=== PATIENT | female | born 1955 | race Caucasian/White ===

== ENCOUNTER → 2018-10-13 | Outpatient (CLI) | payer MEDICARE ==
[~2018-10-13] MED LIST: ALPR2TAB2 PO; RISP2TAB76 PO
== END | disposition home or self-care (01) ==
LOC: RAH 16:07
PROVIDERS: ATTEND Family Medicine
DX: M25.552 Pain in left hip (principal); M25.551 Pain in right hip
CPT/HCPCS: 73521

== ENCOUNTER 2020-05-11 14:37 | Inpatient (IN) | payer MEDICARE ==
[~2020-05-11] VITALS: Ht 165.1 cm; Wt 51.6 kg
[2020-05-11 15:46] LABS: APPEARANCE,URINE Clear (CLEAR); BILIRUBIN,URINE Negative (NEGATIVE); COLOR,URINE Dark Yellow (YELLOW); GLUCOSE, URINE (UA) Negative (NEGATIVE); KETONES,URINE >=80 mg/dL (NEGATIVE); LEUKOCYTE ESTERASE ,URINE Trace (NEGATIVE); NITRATE,URINE Positive (NEGATIVE); OCCULT BLOOD,URINE Moderate (NEGATIVE); PROTEIN,URINE POS 1+ mg/dL (NEGATIVE)
[2020-05-11 15:47] LABS: BASOPHILS % (AUTO) 0.4 % (0.0-5.0); EOSINOPHILS % (AUTO) 0.2 % (0.0-8.0); HEMATOCRIT 41.1 % (36-48); LYMPHOCYTES % (AUTO) 6.6 % (21.0-51.0); MEAN CORPUSCULAR HEMOGLOBIN 28.6 pg (27.0-33.0); MEAN CORPUSCULAR HGB CONC 33.1 g/dL (32.0-36.0); MEAN CORPUSCULAR VOLUME 86.3 fL (79-99); MONOCYTES % (AUTO) 4.4 % (3.0-13.0); PLATELET COUNT (AUTO) 548 K/uL (130-400); RED BLOOD CELL COUNT(AUTO) 4.76 MIL/uL (4.00-5.50); RED CELL DISTRIBUTION WIDTH 12.7 % (11.0-15.5); WHITE BLOOD COUNT (AUTO) 25.1 K/uL (4.8-10.8)
[2020-05-11 15:53] LABS: AMPHET/METH SCREEN,URINE NEGATIVE (NEGATIVE); BARBITURATE SCREEN, URINE NEGATIVE (NEGATIVE); BENZODIAZEPINES SCREEN,URINE NEGATIVE (NEGATIVE); CANNABINOID SCREEN,URINE POSITIVE (NEGATIVE); COCAINE SCREEN,URINE NEGATIVE (NEGATIVE); OPIATE SCREEN,URINE NEGATIVE (NEGATIVE); PHENCYCLIDINE SCREEN,URINE NEGATIVE (NEGATIVE)
[2020-05-11 15:55] LABS: CARBON DIOXIDE 24 mmol/L (21-32); CHLORIDE 95 mmol/L (101-111); CREATININE 1.3 mg/dL (0.5-1.5); GLOMERULAR FILTR. RATE CALC 44 mL/min (>60); GLUCOSE,RANDOM 159 mg/dL (70-105); POTASSIUM 3.5 mmol/L (3.5-5.1); SODIUM SERUM 135 mmol/L (136-145); UREA NITROGEN, BLOOD 22 mg/dL (7-18)
[2020-05-11 15:59] LABS: BACTERIA,URINE Many /HPF (None Seen)
[2020-05-11 16:00] LABS: MUCUS,URINE Few LPF (None Seen); SQUAMOUS EPITHELIAL CELL,UR 0-2 /HPF (0-2)
[2020-05-11 16:02] LABS: ALANINE AMINOTRANSFERASE 55 U/L (12-78); ALBUMIN 1.9 g/dL (3.5-5.0); ALCOHOL, BLOOD < 3 mg/dL (0-10); AMMONIA 27 umol/L (11-32); ASPARTATE AMINOTRANSFERASE 53 U/L (10-37); TOTAL PROTEIN, SERUM 7.4 g/dL (6.0-8.3)
[2020-05-11] MEDS ORDERED: AZITHROMYCIN 500MG+NS 250ML 250 ML IV ONE (16:28)
[2020-05-11] MEDS ORDERED: CEFTRIAXONE SODIUM 1 GM ONE (16:29)
[2020-05-11] MEDS: AZITHROMYCIN 500MG+NS 250ML 250 ML IV SCH (18:30)
[2020-05-11] MEDS: FUROSEMIDE 10 MG/ML 4ML VIAL IV SCH (18:30)
[2020-05-11] MEDS ORDERED: ONDANSETRON HCL 4 MG/2 ML VIAL IVP PRN (18:30)
[2020-05-11] MEDS ORDERED: HYDRALAZINE HCL 20 MG/ML VIAL IV PRN (18:30)
[2020-05-11] MEDS ORDERED: LACTULOSE 20 GM/30 ML UDCUP PO PRN (18:30)
[2020-05-11] MEDS ORDERED: LOPERAMIDE HCL 2 MG CAP PO PRN (18:30)
[2020-05-11 18:33] VITALS: BP 94/61
--- NOTE | 2020-05-11 18:42 | NUR ---
Received pt via stretcher from ER. Pt A+Ox2. pt resting in bed comfortably. pt states she has no medical problems and does not take any medications at home. V/s taken and stable. no complaints offered. Will cont to monitor
[2020-05-11 19:00] VITALS: BP 94/63
--- NOTE | 2020-05-11 20:30 | NUR ---
ESTELA RETURNED PAGE [facility] FROM [facility] ORDERED FOR PT TO BE ON 2L NC, CONT PULSE OXIMETER, TELEMETRY MONITORING AND CXR IN THE AM. PT CURRENTLY NOT IN ANY RESP DISTRESS.
--- NOTE | 2020-05-11 21:00 | NUR ---
NOTE PT ON TELE AND CONT PULSE OX. NO RESP DISTRESS. WILL CONT TO MONITOR.
[2020-05-11] MEDS: ENOXAPARIN SODIUM 30 MG/0.3 ML SQ SCH (21:22)
--- NOTE | 2020-05-11 21:53 | NUR ---
[facility] ROUNDS ERIN Daugherty ROUNDED TO SEE THE PT IN ROOM 406. STATED THAT IF THE PT WAS ON CONT TELE AND PULSE OX THE PT MAY STAY ON THE FLOOR. TO MONITOR CLOSELY FOR ANY RESP DISTRESS. IF RESP DISTRESS OCCURS TO TRANSFER PT TO PCCU FOR POSS CHEST TUBE.
[2020-05-12] VITALS (7 sets, daily range): BP systolic 99–129; BP diastolic 65–82
[2020-05-12] MEDS: SODIUM CHLORIDE 0.9% 1000ML 1,000 ML IV SCH ×2 (04:30→15:11)
[2020-05-12 04:41] LABS: ABG BASE EXCESS 2.6 mmol/L (-2.0-3.0); ABG HCO3 22.6 mmol/L (21.0-28.0); ABG OXYGEN SATURATION 99.1 % (95.0-99.0); ABG PCO2 24 mmHg (32-45)
[2020-05-12 04:51] LABS: BASOPHILS % (AUTO) 0.4 % (0.0-5.0); EOSINOPHILS % (AUTO) 0.3 % (0.0-8.0); LYMPHOCYTES % (AUTO) 7.5 % (21.0-51.0); MEAN CORPUSCULAR HEMOGLOBIN 28.7 pg (27.0-33.0); MEAN CORPUSCULAR HGB CONC 33.4 g/dL (32.0-36.0); MONOCYTES % (AUTO) 3.8 % (3.0-13.0); NEUTROPHILS % (AUTO) 87.4 % (40.0-77.0); PLATELET COUNT (AUTO) 358 K/uL (130-400); RED BLOOD CELL COUNT(AUTO) 4.07 MIL/uL (4.00-5.50); RED CELL DISTRIBUTION WIDTH 12.8 % (11.0-15.5); WHITE BLOOD COUNT (AUTO) 18.3 K/uL (4.8-10.8)
[2020-05-12 05:07] LABS: ALBUMIN 1.3 g/dL (3.5-5.0); BILIRUBIN,DIRECT 0.2 mg/dL (0.0-0.3); BILIRUBIN,TOTAL 0.5 mg/dL (0.2-1.0); CREATININE 0.6 mg/dL (0.5-1.5); CRP QUANTITATIVE 145.7 mg/L (0.00-9.0); MAGNESIUM 2.6 mg/dL (1.80-2.40); PHOSPHORUS 2.1 mg/dL (2.5-4.9); POTASSIUM 3.4 mmol/L (3.5-5.1); TOTAL PROTEIN, SERUM 5.9 g/dL (6.0-8.3)
[2020-05-12 05:08] LABS: B-TYPE NATRIURETIC PEPTIDE 199 pg/mL (0-100)
[2020-05-12] MEDS: FUROSEMIDE 10 MG/ML 4ML VIAL IV SCH ×2 (06:00→20:35)
--- NOTE | 2020-05-12 06:54 | NUR ---
NOTE PT HEART RATE IN THE 120-124 AT THIS TIME. NO SOB NOTED. HR IN THE 80'S THROUGHOUT THE NIGHT.
[2020-05-12] MEDS: DEXAMETHASONE SOD PHOSPHATE 4 MG/ML 1ML VIAL IVP SCH (09:00)
[2020-05-12] MEDS: ENOXAPARIN SODIUM 30 MG/0.3 ML SQ SCH ×2 (09:00→20:36)
[2020-05-12] MEDS: FAMOTIDINE 20MG TAB 20 MG TAB PO SCH (09:00)
[2020-05-12] MEDS: CEFTRIAXONE SODIUM 1 GM IV SCH (09:00)
--- NOTE | 2020-05-12 14:12 | NUR ---
CHART CHECK COMPLETED. Pt IS A 64 Y.O. FEMALE ADMITTED SECONDARY TO [facility] COVID 19. Pt HAS A PAST MEDICAL HISTORY SIGNIFICANT FOR UTI, LEUKOCYTOSIS, BIPOLAR DISORDER, GERD, C-SPINE PROBLEMS, FIBROMYALGIA, POLY-SUBSTANCE ABUSE. Pt CURRENTLY ON REGULAR TEXTURE,THIN LIQUID DIET (HEART HEALTHY). PLEASE REQUEST FORMAL SKILLED SPEECH/SWALLOW EVALUATION IF Pt PRESENTS WITH +S/S OF ASPIRATION SUCH COUGH RESPONSE, THROAT CLEAR, OR WET VOCAL QUALITY DURING P.O. Addendum: 05/12/20 at 1413 by SIMRAN WOLFF, SPT ST Amended: Links added.
--- NOTE | 2020-05-12 18:11 | NUR ---
DCP CM called pt's room no answer. Called caregiver on facesheet, spoke to Torin Pastor , discussed dc plans. Pt is mostly independent prior to admission, lives at home alone. Has a provider 3hrs/day, rollator walker, 4 prong cane, shower chair. Denies any other equipments/services. Feels safe to go back home, provider able to assist with transportation and needs as necessary. Pt uses [facility] on [address] for meds. DC plan to home once stable. CM to cont to follow up. Addendum: 05/12/20 at 1814 by MERARI RODRIGUEZ LVN CM Amended: Links added.
[2020-05-12] MEDS: AZITHROMYCIN 500MG+NS 250ML 250 ML IV SCH (20:35)
[2020-05-13] VITALS (7 sets, daily range): BP systolic 101–124; BP diastolic 55–76
[2020-05-13] MEDS: ACETAMINOPHEN 325 MG TAB PO PRN ×2 (00:04→20:29)
[2020-05-13 04:33] LABS: BASOPHILS % (AUTO) 0.4 % (0.0-5.0); EOSINOPHILS % (AUTO) 0.2 % (0.0-8.0); HEMATOCRIT 32.1 % (36-48); LYMPHOCYTES % (AUTO) 4.5 % (21.0-51.0); MEAN CORPUSCULAR HEMOGLOBIN 28.7 pg (27.0-33.0); MEAN CORPUSCULAR HGB CONC 33.6 g/dL (32.0-36.0); MEAN CORPUSCULAR VOLUME 85.4 fL (79-99); NEUTROPHILS % (AUTO) 89.8 % (40.0-77.0); PLATELET COUNT (AUTO) 312 K/uL (130-400); RED BLOOD CELL COUNT(AUTO) 3.76 MIL/uL (4.00-5.50); RED CELL DISTRIBUTION WIDTH 12.6 % (11.0-15.5); WHITE BLOOD COUNT (AUTO) 21.8 K/uL (4.8-10.8)
[2020-05-13 04:56] LABS: ALBUMIN 1.2 g/dL (3.5-5.0); BILIRUBIN,TOTAL 0.3 mg/dL (0.2-1.0); CREATININE 0.7 mg/dL (0.5-1.5); MAGNESIUM 1.7 mg/dL (1.80-2.40); PHOSPHORUS 1.9 mg/dL (2.5-4.9); TOTAL PROTEIN, SERUM 5.5 g/dL (6.0-8.3)
[2020-05-13 05:04] LABS: POTASSIUM 2.6 mmol/L (3.5-5.1)
--- NOTE | 2020-05-13 05:31 | NUR ---
CRITICAL LAB VALUE [facility] PAGED FOR CRITICAL POTASSIUM: 2.6, NO CALL BACK AT THIS TIME. WILL RE-PAGE IN 10 MINUTES
[2020-05-13] MEDS: FUROSEMIDE 10 MG/ML 4ML VIAL IV SCH ×2 (06:13→14:38)
[2020-05-13] MEDS: FAMOTIDINE 20MG TAB 20 MG TAB PO SCH (08:34)
[2020-05-13] MEDS: DEXAMETHASONE SOD PHOSPHATE 4 MG/ML 1ML VIAL IVP SCH (08:34)
[2020-05-13] MEDS: CEFTRIAXONE SODIUM 1 GM IV SCH (08:34)
[2020-05-13] MEDS: ENOXAPARIN SODIUM 30 MG/0.3 ML SQ SCH ×2 (08:35→20:10)
[2020-05-13] MEDS: POTASSIUM CHLORIDE 20MEQ/100ML 100 ML IV PRN ×2 (10:29→14:45)
[2020-05-13] MEDS: LIDOCAINE HCL-MPF 1% 2ML VIAL IV PRN ×2 (10:30→14:48)
[2020-05-13] MEDS: SODIUM CHLORIDE 0.9% 1000ML 1,000 ML IV SCH ×2 (10:58→20:10)
[2020-05-13] MEDS: FOLIC ACID 1 MG TABLET PO SCH (12:40)
[2020-05-13] MEDS: THIAMINE HCL 100 MG TABLET PO SCH (12:40)
--- NOTE | 2020-05-13 15:33 | NUR ---
CM Note: [facility] pending pt to agree CM spoke to pt discussed Dr Valerio's recs for [facility], pt at this time undecided, prefers to go home, but wants time to think about it, will call CM once decision made. Informed pt CM will follow up on pt again. CM to cont to follow up.
[2020-05-13] MEDS: AZITHROMYCIN 500MG+NS 250ML 250 ML IV SCH (17:50)
[2020-05-13] MEDS: POTASSIUM CHLORIDE 10% ELIXIR 20 MEQ/15 ML UDCUP PO PRN ×2 (18:43→20:29)
[2020-05-14 03:42] VITALS: BP 112/57
[2020-05-14] MEDS: FUROSEMIDE 10 MG/ML 4ML VIAL IV SCH ×2 (06:19→18:09)
[2020-05-14] MEDS: POTASSIUM CHLORIDE 10% ELIXIR 20 MEQ/15 ML UDCUP PO PRN (06:30)
[2020-05-14] MEDS: SODIUM CHLORIDE 0.9% 1000ML 1,000 ML IV SCH ×2 (06:31→18:09)
[2020-05-14 07:33] VITALS: BP 108/67
[2020-05-14 08:51] LABS: BASOPHILS % (AUTO) 0.4 % (0.0-5.0); EOSINOPHILS % (AUTO) 0.3 % (0.0-8.0); HEMATOCRIT 39.2 % (36-48); LYMPHOCYTES % (AUTO) 4.2 % (21.0-51.0); MEAN CORPUSCULAR HEMOGLOBIN 28.8 pg (27.0-33.0); MEAN CORPUSCULAR HGB CONC 33.2 g/dL (32.0-36.0); MEAN CORPUSCULAR VOLUME 86.7 fL (79-99); MONOCYTES % (AUTO) 2.6 % (3.0-13.0); NEUTROPHILS % (AUTO) 90.9 % (40.0-77.0); PLATELET COUNT (AUTO) 390 K/uL (130-400); RED BLOOD CELL COUNT(AUTO) 4.52 MIL/uL (4.00-5.50); RED CELL DISTRIBUTION WIDTH 12.9 % (11.0-15.5)
[2020-05-14 09:13] LABS: ALBUMIN 1.3 g/dL (3.5-5.0); BILIRUBIN,TOTAL 0.3 mg/dL (0.2-1.0); CREATININE 0.8 mg/dL (0.5-1.5); MAGNESIUM 1.8 mg/dL (1.80-2.40); POTASSIUM 3.8 mmol/L (3.5-5.1); TOTAL PROTEIN, SERUM 6.1 g/dL (6.0-8.3)
[2020-05-14] MEDS: FAMOTIDINE 20MG TAB 20 MG TAB PO SCH (09:24)
[2020-05-14] MEDS: THIAMINE HCL 100 MG TABLET PO SCH (09:24)
[2020-05-14] MEDS: FOLIC ACID 1 MG TABLET PO SCH (09:24)
[2020-05-14] MEDS: CEFTRIAXONE SODIUM 1 GM IV SCH (09:25)
[2020-05-14] MEDS: DEXAMETHASONE SOD PHOSPHATE 4 MG/ML 1ML VIAL IVP SCH (09:25)
[2020-05-14] MEDS: ENOXAPARIN SODIUM 30 MG/0.3 ML SQ SCH ×2 (09:25→20:56)
[2020-05-14] MEDS: AZITHROMYCIN 500MG+NS 250ML 250 ML IV SCH (09:25)
[2020-05-14 11:28] VITALS: BP 143/55
--- NOTE | 2020-05-14 15:30 | NUR ---
ASSUMED CARE OF PATIENT, RESTING QUIETLY IN BED.
[2020-05-14] MEDS: ACETAMINOPHEN 325 MG TAB PO PRN (15:56)
[2020-05-14 16:17] VITALS: BP 124/70
--- NOTE | 2020-05-14 18:43 | NUR ---
COMPLAINTS OF LOOSE/SOFT STOOLS WANTED SOMETHING FOR HER STOMACH. IMODIUM GIVEN
[2020-05-14 20:47] VITALS: BP 107/70
[2020-05-14] MEDS: MORPHINE SULFATE 2 MG/ML 1ML SYG IV PRN (20:57)
[2020-05-14 23:55] VITALS: BP 116/65
[2020-05-15] VITALS (19 sets, daily range): BP systolic 87–147; BP diastolic 55–90
[2020-05-15] MEDS: SODIUM CHLORIDE 0.9% 1000ML 1,000 ML IV SCH ×3 (02:14→22:00)
[2020-05-15] MEDS: MORPHINE SULFATE 2 MG/ML 1ML SYG IV PRN (05:59)
[2020-05-15] MEDS: FUROSEMIDE 10 MG/ML 4ML VIAL IV SCH ×2 (05:59→17:54)
[2020-05-15] MEDS: ENOXAPARIN SODIUM 30 MG/0.3 ML SQ SCH ×2 (08:08→20:53)
[2020-05-15] MEDS: CEFTRIAXONE SODIUM 1 GM IV SCH (08:08)
[2020-05-15] MEDS: FAMOTIDINE 20MG TAB 20 MG TAB PO SCH (08:08)
--- NOTE | 2020-05-15 09:20 | NUR ---
DR. CARLITOS BRO WAS CALLED . UPDATE CONSULTATION ORDER FROM 05/14/2020 UPDATE TODAY CARE PLAN.WILL PLACE IN HIS CENSUS .
[2020-05-15] MEDS: THIAMINE HCL 100 MG TABLET PO SCH (11:45)
[2020-05-15] MEDS: FOLIC ACID 1 MG TABLET PO SCH (11:45)
[2020-05-15] MEDS ORDERED: SUCCINYLCHOLINE CHLORIDE 20 MG/ML 10 ML VIAL ONE (11:59)
[2020-05-15 13:16] LABS: INR 1.01 (0.85-1.15); PROTHROMBIN TIME 10.9 SEC (9.6-11.6)
[2020-05-15] MEDS ORDERED: PROPOFOL 10 MG/ML 20ML VIAL IV ONE (13:19)
[2020-05-15] MEDS ORDERED: LIDOCAINE PF 2% 5ML ABBOJECT ONE (13:20)
[2020-05-15] MEDS ORDERED: ROCURONIUM 10MG/1ML SYR 10 MG/ML ML ONE (13:23)
[2020-05-15] MEDS ORDERED: FENTANYL CITRATE PF 50 MCG/1 ML 2ML VIAL ONE (13:27)
[2020-05-15] MEDS ORDERED: MIDAZOLAM HCL 1 MG/ML 2ML VIAL ONE (13:27)
--- NOTE | 2020-05-15 13:40 | NUR ---
TO GI LAB FOR THE BRONOSCOPY PROCEDURE. CONSENT REVIEWED
[2020-05-15] MEDS ORDERED: ESMOLOL HCL 10 MG/ML 10 ML VIAL ONE ×2 (14:37→15:06)
[2020-05-15] MEDS ORDERED: METOPROLOL TARTRATE 1 MG/ML 5ML VIAL IV ONE (15:27)
[2020-05-15] MEDS ORDERED: HYDRALAZINE HCL 20 MG/ML VIAL IV SCH (16:00)
[2020-05-15] MEDS: AZITHROMYCIN 500MG+NS 250ML 250 ML IV SCH (18:05)
[2020-05-16] VITALS (17 sets, daily range): BP systolic 100–140; BP diastolic 62–86
[2020-05-16 03:39] LABS: BASOPHILS % (AUTO) 0.4 % (0.0-5.0); EOSINOPHILS % (AUTO) 0.2 % (0.0-8.0); HEMATOCRIT 32.4 % (36-48); LYMPHOCYTES % (AUTO) 6.9 % (21.0-51.0); MEAN CORPUSCULAR HEMOGLOBIN 28.4 pg (27.0-33.0); MEAN CORPUSCULAR HGB CONC 33.3 g/dL (32.0-36.0); MEAN CORPUSCULAR VOLUME 85.3 fL (79-99); MONOCYTES % (AUTO) 5.4 % (3.0-13.0); NEUTROPHILS % (AUTO) 86.1 % (40.0-77.0); PLATELET COUNT (AUTO) 314 K/uL (130-400); RED CELL DISTRIBUTION WIDTH 13.2 % (11.0-15.5); WHITE BLOOD COUNT (AUTO) 22.8 K/uL (4.8-10.8)
[2020-05-16 03:54] LABS: ALBUMIN 1.1 g/dL (3.5-5.0); BILIRUBIN,TOTAL 0.2 mg/dL (0.2-1.0); CREATININE 0.6 mg/dL (0.5-1.5); MAGNESIUM 2.3 mg/dL (1.80-2.40); PHOSPHORUS 2.4 mg/dL (2.5-4.9); TOTAL PROTEIN, SERUM 4.9 g/dL (6.0-8.3)
[2020-05-16 04:11] LABS: POTASSIUM 2.8 mmol/L (3.5-5.1)
[2020-05-16] MEDS: FUROSEMIDE 10 MG/ML 4ML VIAL IV SCH ×2 (05:56→18:21)
[2020-05-16] MEDS: POTASSIUM CHLORIDE 20MEQ/100ML 100 ML IV PRN (05:56)
[2020-05-16] MEDS: SODIUM CHLORIDE 0.9% 1000ML 1,000 ML IV SCH ×2 (08:04→22:23)
[2020-05-16] MEDS: CEFTRIAXONE SODIUM 1 GM IV SCH (08:20)
[2020-05-16] MEDS: ENOXAPARIN SODIUM 30 MG/0.3 ML SQ SCH (08:20)
[2020-05-16] MEDS: FAMOTIDINE 20MG TAB 20 MG TAB PO SCH (08:21)
[2020-05-16] MEDS: THIAMINE HCL 100 MG TABLET PO SCH (11:34)
[2020-05-16] MEDS: FOLIC ACID 1 MG TABLET PO SCH (11:34)
--- NOTE | 2020-05-16 15:52 | NUR ---
Spoke to radiology pt will go for thoracentesis tomorrow. Hold lovenox dose on 05/17.
--- NOTE | 2020-05-16 17:05 | NUR ---
pt transported to 4th floor with RN in stable condition.
--- NOTE | 2020-05-16 17:20 | NUR ---
PT ARRIVED FROM 1B ICU, ALERT AND ORIENTED
[2020-05-16] MEDS: AZITHROMYCIN 500MG+NS 250ML 250 ML IV SCH (18:27)
[2020-05-17] VITALS (12 sets, daily range): BP systolic 116–140; BP diastolic 67–84
[2020-05-17] MEDS: SODIUM CHLORIDE 0.9% 1000ML 1,000 ML IV SCH ×3 (04:35→22:08)
[2020-05-17] MEDS: FUROSEMIDE 10 MG/ML 4ML VIAL IV SCH ×2 (04:44→18:53)
[2020-05-17 05:31] LABS: BASOPHILS % (AUTO) 0.5 % (0.0-5.0); EOSINOPHILS % (AUTO) 0.1 % (0.0-8.0); HEMATOCRIT 37.2 % (36-48); LYMPHOCYTES % (AUTO) 8.8 % (21.0-51.0); MEAN CORPUSCULAR HEMOGLOBIN 28.3 pg (27.0-33.0); MEAN CORPUSCULAR HGB CONC 32.8 g/dL (32.0-36.0); MEAN CORPUSCULAR VOLUME 86.3 fL (79-99); MONOCYTES % (AUTO) 5.7 % (3.0-13.0); NEUTROPHILS % (AUTO) 82.8 % (40.0-77.0); PLATELET COUNT (AUTO) 352 K/uL (130-400); RED BLOOD CELL COUNT(AUTO) 4.31 MIL/uL (4.00-5.50); RED CELL DISTRIBUTION WIDTH 13.2 % (11.0-15.5); WHITE BLOOD COUNT (AUTO) 19.7 K/uL (4.8-10.8)
[2020-05-17 05:51] LABS: ALBUMIN 1.3 g/dL (3.5-5.0); BILIRUBIN,TOTAL 0.5 mg/dL (0.2-1.0); CREATININE 0.8 mg/dL (0.5-1.5); MAGNESIUM 1.7 mg/dL (1.80-2.40); PHOSPHORUS 2.3 mg/dL (2.5-4.9); TOTAL PROTEIN, SERUM 6.2 g/dL (6.0-8.3)
[2020-05-17 06:00] LABS: POTASSIUM 2.6 mmol/L (3.5-5.1)
[2020-05-17] MEDS: POTASSIUM CHLORIDE 20MEQ/100ML 100 ML IV PRN (06:12)
[2020-05-17] MEDS: CEFTRIAXONE SODIUM 1 GM IV SCH (08:08)
[2020-05-17] MEDS: POTASSIUM CHLORIDE 20 MEQ ERTAB PO PRN ×2 (08:15→15:23)
--- NOTE | 2020-05-17 09:30 | NUR ---
PATIENT TESTED FOR COVID 05/11/20 COVID-19 PCR NEGATIVE Addendum: 05/17/20 at 1021 by TREY FELIX RN RN Amended: Links added.
[2020-05-17] MEDS ORDERED: LIDOCAINE HCL-MPF 1% 2ML VIAL IV PRN (11:00)
[2020-05-17] MEDS ORDERED: POTASSIUM CHLORIDE 20MEQ/100ML 100 ML IV PRN (11:00)
--- NOTE | 2020-05-17 11:32 | NUR ---
U/S GD RT THORACENTESIS PROCEDURE PERFORMED BY DR Anibal DIANE. PUNCTURE SITE RT LUNG. TOTAL REMOVED 900ML OF PURULENT YELLOW FLUID. END OF PROCEDURE AT 1000. PATIENT TOLERATED PROCEDURE WELL. POST CHEST X-RAY TAKEN AND PENDING RESULTS. PATIENT TRANSPORTED TO [facility] VIA BED. REPORT GIVEN TO Adri HAYNES RN. NO C/O DISCOMFORT UPON TRANSFER.
[2020-05-17 11:40] LABS: CHOLESTEROL,BODY FLUID < 50 mg/dL
[2020-05-17 15:07] LABS: APPEARANCE BODY FLUID TURBID (CLEAR); SPECIMENTYPE,BODY FLUID PLEURAL
[2020-05-17 15:08] LABS: COLOR,BODY FLUID OTHER (LT YELLOW); TOTAL VOLUME,BODY FLUID 900 mL
[2020-05-17 15:09] LABS: BODY FLUID WBC 66000 /cu. mm.
[2020-05-17 15:12] LABS: BODY FLUID RBC 500 /cu. mm.
[2020-05-17] MEDS: THIAMINE HCL 100 MG TABLET PO SCH (15:23)
[2020-05-17] MEDS: FOLIC ACID 1 MG TABLET PO SCH (15:23)
[2020-05-17] MEDS: FAMOTIDINE 20MG TAB 20 MG TAB PO SCH (15:23)
[2020-05-17] MEDS: AZITHROMYCIN 500MG+NS 250ML 250 ML IV SCH (18:51)
[2020-05-18] VITALS (7 sets, daily range): BP systolic 110–149; BP diastolic 58–90
[2020-05-18] MEDS: FUROSEMIDE 10 MG/ML 4ML VIAL IV SCH ×2 (05:43→17:03)
--- NOTE | 2020-05-18 08:31 | NUR ---
Patient is s/p right Thoracentesis 05/17/2020.Will continue Physical Therapy treatment plan as tolerated, OOB to chair x 1 person assist and ROM strengthening exercises to LE's . Addendum: 05/18/20 at 0833 by JAMARI PUGA, PT PT Amended: Links added.
[2020-05-18 08:40] LABS: BASOPHILS % (AUTO) 0.7 % (0.0-5.0); EOSINOPHILS % (AUTO) 0.1 % (0.0-8.0); HEMATOCRIT 37.6 % (36-48); LYMPHOCYTES % (AUTO) 7.5 % (21.0-51.0); MEAN CORPUSCULAR HEMOGLOBIN 28.3 pg (27.0-33.0); MEAN CORPUSCULAR HGB CONC 33.2 g/dL (32.0-36.0); MEAN CORPUSCULAR VOLUME 85.3 fL (79-99); MONOCYTES % (AUTO) 4.3 % (3.0-13.0); NEUTROPHILS % (AUTO) 86.3 % (40.0-77.0); PLATELET COUNT (AUTO) 333 K/uL (130-400); RED BLOOD CELL COUNT(AUTO) 4.41 MIL/uL (4.00-5.50); RED CELL DISTRIBUTION WIDTH 13.2 % (11.0-15.5)
[2020-05-18 09:06] LABS: CREATININE 0.8 mg/dL (0.5-1.5); POTASSIUM 3.5 mmol/L (3.5-5.1)
[2020-05-18] MEDS: CEFTRIAXONE SODIUM 1 GM IV SCH (10:03)
[2020-05-18] MEDS: FAMOTIDINE 20MG TAB 20 MG TAB PO SCH (10:04)
[2020-05-18] MEDS: POTASSIUM CHLORIDE 20 MEQ ERTAB PO PRN ×2 (10:04→14:16)
[2020-05-18] MEDS: THIAMINE HCL 100 MG TABLET PO SCH (10:05)
[2020-05-18] MEDS: FOLIC ACID 1 MG TABLET PO SCH (10:05)
[2020-05-18] MEDS: SODIUM CHLORIDE 0.9% 1000ML 1,000 ML IV SCH ×2 (10:08→21:24)
--- NOTE | 2020-05-18 11:43 | NUR ---
RDSCREEN - LOS X 7 Pt admitted with CAD. Regular diet order in place. Poor appetite. Fair PO intake at 50%. No report of GI distress. WBC 18.0, P 2.3, Mg 1.70, Alb 1.3. Thiamine, Folic acid in place. Pt with history of polysubstance abuse. BMI 19.0, low BMI for age. S/p thoracentesis, Biopsy, bronchoscopy. Pending results. Pending possible lobectomy. Recommend Daily Multivitamin Recommend 60mL ProMod BID Recommend Ensure BID RD to continue to monitor. Please notify RD as additional nutrition concerns arise. Thank you. Addendum: 05/18/20 at [address] Amended: Links added.
--- NOTE | 2020-05-18 16:34 | NUR ---
CALLED LAB TO FOLLOW UP WITH PATHOLOGY RESULTS ON THORACENTESIS AND BRONCHOSCOPY, RESULTS NOT FINALIZED
[2020-05-19 04:25] VITALS: BP 140/74
[2020-05-19] MEDS: FUROSEMIDE 10 MG/ML 4ML VIAL IV SCH ×2 (06:30→18:01)
[2020-05-19] MEDS: SODIUM CHLORIDE 0.9% 1000ML 1,000 ML IV SCH ×2 (06:50→17:07)
[2020-05-19 07:43] VITALS: BP 136/85
[2020-05-19 08:27] LABS: BASOPHILS % (AUTO) 0.6 % (0.0-5.0); HEMATOCRIT 37.1 % (36-48); LYMPHOCYTES % (AUTO) 7.8 % (21.0-51.0); MEAN CORPUSCULAR HEMOGLOBIN 28.2 pg (27.0-33.0); MEAN CORPUSCULAR HGB CONC 32.9 g/dL (32.0-36.0); MEAN CORPUSCULAR VOLUME 85.7 fL (79-99); MONOCYTES % (AUTO) 5.5 % (3.0-13.0); NEUTROPHILS % (AUTO) 84.7 % (40.0-77.0); PLATELET COUNT (AUTO) 368 K/uL (130-400); RED BLOOD CELL COUNT(AUTO) 4.33 MIL/uL (4.00-5.50); RED CELL DISTRIBUTION WIDTH 13.2 % (11.0-15.5); WHITE BLOOD COUNT (AUTO) 25.8 K/uL (4.8-10.8)
[2020-05-19 08:43] LABS: CREATININE 0.7 mg/dL (0.5-1.5); POTASSIUM 3.4 mmol/L (3.5-5.1)
[2020-05-19] MEDS: CEFTRIAXONE SODIUM 1 GM IV SCH (08:54)
[2020-05-19] MEDS: FAMOTIDINE 20MG TAB 20 MG TAB PO SCH (08:54)
[2020-05-19] MEDS: FOLIC ACID 1 MG TABLET PO SCH (08:54)
[2020-05-19] MEDS: THIAMINE HCL 100 MG TABLET PO SCH (08:54)
[2020-05-19 11:00] VITALS: BP 162/93
[2020-05-19] MEDS: POTASSIUM CHLORIDE 20 MEQ ERTAB PO PRN ×2 (12:11→14:53)
--- NOTE | 2020-05-19 13:46 | NUR ---
SPOKE WITH PAULINA FROM DR. JEAN OFFICE, MADE AWARE OF CONSULT, TANIA ROBLES, PENDING CALL BACK
--- NOTE | 2020-05-19 13:56 | NUR ---
SPOKE WITH DR. JEAN MADE AWARE OF NEW CONSULT, STATED HE WILL SEE PATIENT IN CLINIC ONCE SHE IS DISCHARGED AND INFECTION IS CLEARED
--- NOTE | 2020-05-19 15:30 | NUR ---
NOTED PATIENT WITH PULSE OF 120, PATIENT NOT ON TELE, BP STABLE. NEREIDA BRAY MADE AWARE NEW ORDER TELE MONITORING
[2020-05-19 16:00] VITALS: BP 126/78
--- NOTE | 2020-05-19 17:00 | NUR ---
PATIENT ON TELE MONITORING SUSTAINING ST 120S, ASYMPTOMATIC. SPOKE WITH NEREIDA BRAY NP NEW ORDER CARVEDILOL 6.25MG PO BID
--- NOTE | 2020-05-19 17:16 | NUR ---
DR. KIP BAEZA, REVIEWED CT CHEST AND CYTOLOGY REPORTS, PENDING REPORT FROM THORACENTESIS. NEW ORDER CONSULT CASE MANAGEMENT FOR LEGAL NEXT OF KIN
[2020-05-19 20:09] VITALS: BP 142/86
[2020-05-19] MEDS: CARVEDILOL 6.25 MG TABLET PO SCH (21:53)
[2020-05-19 23:28] VITALS: BP 99/97
[2020-05-20 04:00] VITALS: BP 105/68
[2020-05-20] MEDS: FUROSEMIDE 10 MG/ML 4ML VIAL IV SCH ×2 (06:38→18:21)
[2020-05-20] MEDS: POTASSIUM CHLORIDE 10% ELIXIR 20 MEQ/15 ML UDCUP PO PRN ×2 (06:41→09:58)
[2020-05-20 08:00] VITALS: BP 109/72
[2020-05-20] MEDS: CEFTRIAXONE SODIUM 1 GM IV SCH (09:58)
[2020-05-20] MEDS: CARVEDILOL 6.25 MG TABLET PO SCH ×2 (09:59→20:31)
[2020-05-20] MEDS: SODIUM CHLORIDE 0.9% 1000ML 1,000 ML IV SCH ×3 (10:00→22:17)
[2020-05-20] MEDS: FAMOTIDINE 20MG TAB 20 MG TAB PO SCH (10:00)
--- NOTE | 2020-05-20 10:25 | NUR ---
SS Prompt: Assistance with Legal Next of Kin ADAN contacted PCP office of Dr. Leonard Isaac and inquired about next of kin per records; This worker informed no one listed. ADAN contacted Caregiver Torin Pastor [phone] and per Ms. Pastor, pt. never , parents and she has no children. Ms. Pastor stated that she was contacted by floor nurse yesterday with the same inquiries and provided her with pt's only Brother: Miguel Freitas [phone]. ADAN telephoned pt's brother, no answer; left voicemail to contact this worker. ADAN contacted pt's primary nurse ALICIA Lyons and provided pt's brother's name and telephone number.
[2020-05-20 11:00] VITALS: BP 104/74
[2020-05-20] MEDS: FOLIC ACID 1 MG TABLET PO SCH (13:10)
[2020-05-20] MEDS: THIAMINE HCL 100 MG TABLET PO SCH (13:10)
--- NOTE | 2020-05-20 13:30 | NUR ---
Call back from pt's Brother Miguel Freitas, stating that pt. has no other siblings, no chlildren, no spouse. Pt's brother informed that physician's inquiring about next of kin, pt's brother confirmed he is the only living relative and provided two contact tel#s for himself so that physicians may contact him : Home: Pt's Brother stated that he would f/u with primary nurse on pt. condition. SW provided contact info to CM.
[2020-05-20 16:03] VITALS: BP 101/73
[2020-05-20 19:53] VITALS: BP 130/76
[2020-05-20] MEDS: POTASSIUM CHLORIDE 20 MEQ ERTAB PO PRN (20:30)
--- NOTE | 2020-05-20 22:50 | NUR ---
CRACKLES NOTED BILATERALLY. CONGESTION NOTED. PT ENCOURAGED TO COUGH AND REMOVE MUCUS. GIVEN ENSURE AND WATER. TOLERATED WELL.ATTEMPTING TO INCREASE NUTRITION LEVELS. GBW. SOB. IV FLUIDS IN PLACE.
[2020-05-20 23:40] VITALS: BP 102/66
[2020-05-21 03:40] VITALS: BP 160/91
[2020-05-21 05:16] LABS: BASOPHILS % (AUTO) 0.3 % (0.0-5.0); HEMATOCRIT 34.3 % (36-48); LYMPHOCYTES % (AUTO) 7.2 % (21.0-51.0); MEAN CORPUSCULAR HEMOGLOBIN 27.9 pg (27.0-33.0); MEAN CORPUSCULAR HGB CONC 32.7 g/dL (32.0-36.0); MEAN CORPUSCULAR VOLUME 85.5 fL (79-99); MONOCYTES % (AUTO) 5.9 % (3.0-13.0); NEUTROPHILS % (AUTO) 85.6 % (40.0-77.0); PLATELET COUNT (AUTO) 332 K/uL (130-400); RED BLOOD CELL COUNT(AUTO) 4.01 MIL/uL (4.00-5.50); RED CELL DISTRIBUTION WIDTH 13.2 % (11.0-15.5); WHITE BLOOD COUNT (AUTO) 20.2 K/uL (4.8-10.8)
[2020-05-21 05:37] LABS: CREATININE 0.6 mg/dL (0.5-1.5); MAGNESIUM 1.9 mg/dL (1.80-2.40); PHOSPHORUS 2.9 mg/dL (2.5-4.9); POTASSIUM 3.5 mmol/L (3.5-5.1)
[2020-05-21] MEDS: FUROSEMIDE 10 MG/ML 4ML VIAL IV SCH (06:05)
[2020-05-21] MEDS: SODIUM CHLORIDE 0.9% 1000ML 1,000 ML IV SCH (07:47)
[2020-05-21 08:56] VITALS: BP 134/87
[2020-05-21] MEDS: FOLIC ACID 1 MG TABLET PO SCH (08:56)
[2020-05-21] MEDS: CARVEDILOL 6.25 MG TABLET PO SCH (08:56)
[2020-05-21] MEDS: FAMOTIDINE 20MG TAB 20 MG TAB PO SCH (08:56)
[2020-05-21] MEDS: THIAMINE HCL 100 MG TABLET PO SCH (08:57)
[2020-05-21] MEDS: CEFTRIAXONE SODIUM 1 GM IV SCH (08:57)
--- NOTE | 2020-05-21 10:40 | NUR ---
JUNIOR ADMINISTRATIVE ASSISTANT CALL TO NOTIFY THAT PT HR WAS DECREASING AND IT WAS IN THE MID 30 B/MIN. IMMEDIATELY PT WAS ASSESS AND FOUND UNRESPONSIVE. CAROTID PULSE WAS VERY WEAK, CODE BLUE WAS CALL AND COMPRESSIONS AND VENTILATIONS STARTED AROUND 1043, FIRST EPI 1MG IV ADMINISTERED. AT 1049 PT IN ASYSTOLE , 1052 SB WITH HR 47. 1053 1 MG IV OF ATROPINE WAS ADMINISTERED. SANDY GARCIA AND FAMILY OF THE PT WAS CALL AND NOTIFY ABOUT THE SITUATION, FAMILY (BROTHER) MARIA FERNANDA OTOOLE WAS ASK ABOUT THE PT WISHES IN CASE OF EMERGENCY AND HE VERBALIZED THAT PT WILL NOT WANT TO BE INTUBATED OR RESUSCITATED, CHOLÉ FLESHING MACHINE OPERATOR WITNESS WITH ME VIA TELEPHONE AND WE SIGN DNR CONSENT. PT WAS MADE DNR BY 1054 AND BY 1055 PT .
== END 2020-05-21 10:55 | disposition expired | DRG 871 ==
LOC: EDH 14:37 → OBSVTOIN 16:43 → EDHIP 16:43 → 4BH 17:37 → 4DH 05-13 22:26 → DAHIP 05-15 16:36 → 4DH 05-16 16:33
PROVIDERS: ADMIT Internal Medicine Critical Care Medicine; ATTEND Internal Medicine Critical Care Medicine
PROC: 5A09357 Assistance with Respiratory Ventilation, Less than 24 Consecutive Hours, Continuous Positive Airway Pressure (ICD-10-PCS; principal; 2020-05-15)
PROC: 0BC78ZZ Extirpation of Matter from Left Main Bronchus, Via Natural or Artificial Opening Endoscopic (ICD-10-PCS; 2020-05-16)
PROC: 0B9F8ZX Drainage of Right Lower Lung Lobe, Via Natural or Artificial Opening Endoscopic, Diagnostic (ICD-10-PCS; 2020-05-16)
PROC: 0BB68ZX Excision of Right Lower Lobe Bronchus, Via Natural or Artificial Opening Endoscopic, Diagnostic (ICD-10-PCS; 2020-05-16)
PROC: 0W993ZZ Drainage of Right Pleural Cavity, Percutaneous Approach (ICD-10-PCS; 2020-05-17)
DX: A41.50 Gram-negative sepsis, unspecified (principal); J18.9 Pneumonia, unspecified organism; J96.91 Respiratory failure, unspecified with hypoxia; J95.1 Acute pulmonary insufficiency following thoracic surgery; E87.2 Acidosis; N39.0 Urinary tract infection, site not specified; C34.31 Malignant neoplasm of lower lobe, right bronchus or lung; J98.11 Atelectasis; Z68.1 Body mass index [BMI] 19.9 or less, adult; J94.8 Other specified pleural conditions; F12.10 Cannabis abuse, uncomplicated; Z20.828 Contact with and (suspected) exposure to other viral communicable diseases; B96.20 Unspecified Escherichia coli [E. coli] as the cause of diseases classified elsewhere; E87.6 Hypokalemia; F10.10 Alcohol abuse, uncomplicated; F31.9 Bipolar disorder, unspecified; G20 Parkinson's disease; I10 Essential (primary) hypertension; K21.9 Gastro-esophageal reflux disease without esophagitis; M79.7 Fibromyalgia; F19.10 Other psychoactive substance abuse, uncomplicated; R62.7 Adult failure to thrive; R53.81 Other malaise; Z74.01 Bed confinement status; Z79.01 Long term (current) use of anticoagulants; Z91.19 Patient's noncompliance with other medical treatment and regimen
CPT/HCPCS: 31622; 31623; 31628; 32555; 36415; 36600; 70450; 71045; 71250; 76000; 80048; 80053; 80076; 80305; 81001; 82140; 82465; 82728; 82803; 82945; 82948; 83036; 83605; 83615; 83735; 83880; 83986; 84100; 84132; 84145; 84155; 84157; 84484; 85025; 85378; 85610; 86140; 87040; 87071; 87077; 87088; 87116; 87186; 87205; 87206; 87426; 88104; 88112; 88305; 88312; 88341; 88342; 89051; 93005; 94660; 94760; 97039; 99291; A4606; G0378; G9654; J0330; J0360; J0456; J0696; J1100; J1650; J1940; J2001; J2250; J2704; J3010; J3480; J3490; J7030; U0003